=== PATIENT | male | born 1930 | race Caucasian/White ===

== ENCOUNTER 2017-02-15 18:14 | Emergency (ER) | payer OTHER, MEDICARE, BC ==
[2017-02-15] MEDS ORDERED: Sodium Chloride 0.9% 2.5 ML Syringe FLUSH PRN (18:47)
[2017-02-15] MEDS ORDERED: Sodium Chloride 0.9% 10 ML Syringe FLUSH PRN (18:47)
--- NOTE | 2017-02-15 18:48 | EDM.PDOC ---
ED HPI GENERAL MEDICAL PROBLEM - General Stated Complaint: POSSIBLE INFECTION/RT LOWER LEG Time Seen by Provider: 02/15/17 18:30 Source of Information: Reports: Patient, Family History Limitations: Reports: No Limitations - History of Present Illness INITIAL COMMENTS - FREE TEXT/NARRATIVE: HISTORY AND PHYSICAL: History of present illness: [Patient is brought to ER by his daughter for complaints of R lower leg pain and redness. States that he got his leg stuck between a tractor and another implement. Exact mechanism unclear. He has some scratches to his lower right leg , which he hasn't treated with any ointments. Pain has gradually increased, and he describes it as a feeling of tightness to his R lower leg, but is only painful with weightbearing. Has had some yellow drainage from the open wound on his right lower leg. Denies fever and chills. No chest pain shortness of breath or difficulty breathing. Appetite has been good. No abdominal pain, nausea or vomiting. Bowels and bladder are normal. Denies calf pain. Family is in town for the of his youngest daughter who of brain cancer. Has a history of COPD and type 2 diabetes requiring insulin. Follows with Dr. Farmer. ] Review of systems: As per history of present illness and below otherwise all systems reviewed and negative. Past medical history: As per history of present illness and as reviewed below otherwise noncontributory. Surgical history: As per history of present illness and as reviewed below otherwise noncontributory. Social history: No reported history of drug or alcohol abuse. Family history: As per history of present illness and as reviewed below otherwise noncontributory. Physical exam: HEENT: Atraumatic, normocephalic. Oral mucous membranes pink and moist. Lungs: Clear to auscultation, breath sounds equal bilaterally. Heart: S1S2, regular. Abdomen: Obese. Soft, nondistended, nontender. Negative for masses, guarding or rebound. Pelvis: Stable nontender. Genitourinary: Deferred. Rectal: Deferred. Extremities: Skin to bilateral lower extremities is heme stained. R lower extremity is ralf and dark red in color. Several small scabs to RLE. 1" long abrasion to proximal mid RLE. Small amount of yellow drainage present at wound. Pulses are equal bilat, 1+. Mild pitting edema present bilat. No deformities appreciated. He is nontender w/ palpation of bilat calves. No cords palpated. Neurovascular unremarkable. Neuro: Awake, alert, oriented. Motor and sensory unremarkable throughout. Exam nonfocal. Diagnostics: [CBC, CMP, lactic acid, tib/fib fracture] Therapeutics: [Rocephin 1 gram IV] Impression: [cellulitis RLE] Plan: [Cephalexin 500 mg #40 sig 2 tabs twice a day zero refills. Elevate leg as much as possible followup with Dr. Farmer in 48-72 hours. Bacitracin and dressing changes twice daily. Strict return impressions are discussed with the patient and his daughter.] Definitive disposition and diagnosis as appropriate pending reevaluation and review of above. - Related Data Allergies Allergy/AdvReac Type Severity Reaction Status Date / Time aspirin Allergy Hives Verified 02/15/17 18:43 fentanyl Allergy Hives Verified 02/15/17 18:43 meperidine [From Demerol] Allergy Hives Verified 02/15/17 18:43 morphine Allergy Hives Verified 02/15/17 18:43 Penicillins Allergy Hives Verified 02/15/17 18:43 Home Meds: Home Meds Albuterol Sulfate [Ventolin Hfa] 02/15/17 [History] Budesonide/Formoterol [Symbicort 80-4.5 MCG] 02/15/17 [History] Furosemide [Lasix] 40 mg DAILY 02/15/17 [History] Insulin Glarg,Human.Rec.Analog [Lantus] 40 units BEDTIME 02/15/17 [History] Insulin Lispro [Humalog Kwikpen U-100] 02/15/17 [History] Losartan [Cozaar] 02/15/17 [History] Other Blood Pressure Med? 02/15/17 [History] Pioglitazone HCl [Actos] 02/15/17 [History] Pioglitazone [Actos] 02/15/17 [History] Venlafaxine [Effexor XR] 02/15/17 [History] traMADol [Ultram] 02/15/17 [History] Review of Systems - Review of Systems Review Of Systems: ROS reveals no pertinent complaints other than HPI. Trauma Exam - Physical Exam Exam: See Below Course - Vital Signs Last Recorded V/S: Last Vital Signs Temp 98.0 F 02/15/17 18:20 Pulse 82 02/15/17 18:20 Resp 18 02/15/17 18:20 BP 147/61 H 02/15/17 18:20 Pulse Ox 94 L 02/15/17 18:20 - Orders/Labs/Meds Orders: Active Orders 24 hr Category Date Time Status Tibia Fibula Rt [CR] Stat Exams 02/15/17 18:47 Taken Sodium Chloride 0.9% [Saline Flush] Med 02/15/17 18:47 Active 10 ml FLUSH ASDIRECTED PRN Sodium Chloride 0.9% [Saline Flush] Med 02/15/17 18:47 Active 2.5 ml FLUSH ASDIRECTED PRN Saline Lock Insert [OM.PC] Stat Oth 02/15/17 18:47 Ordered Medication Orders Sodium Chloride (Saline Flush) 10 ml FLUSH ASDIRECTED PRN PRN Reason: Keep Vein Open Sodium Chloride (Saline Flush) 2.5 ml FLUSH ASDIRECTED PRN PRN Reason: Keep Vein Open Labs: Laboratory Tests 02/15/17 02/15/17 02/15/17 Range/Units 19:07 19:07 19:07 WBC 9.06 (4.0-11.0) K/uL RBC 4.51 (4.50-5.90) M/uL Hgb 13.0 (13.0-17.0) g/dL Hct 40.8 (38.0-50.0) % MCV 90.5 (80.0-98.0) fL MCH 28.8 (27.0-32.0) pg MCHC 31.9 (31.0-37.0) g/dL RDW Std Deviation 48.7 (28.0-62.0) fl RDW Coeff of Tahir 15 (11.0-15.0) % Plt Count 153 (150-400) K/uL MPV 11.60 (7.40-12.00) fL Neut % (Auto) 71.1 (48.0-80.0) % Lymph % (Auto) 15.5 L (16.0-40.0) % [place] % (Auto) 7.5 (0.0-15.0) % Eos % (Auto) 5.6 (0.0-7.0) % Baso % (Auto) 0.3 (0.0-1.5) % Neut # (Auto) 6.4 H (1.4-5.7) K/uL Lymph # (Auto) 1.4 (0.6-2.4) K/uL [place] # (Auto) 0.7 (0.0-0.8) K/uL Eos # (Auto) 0.5 (0.0-0.7) K/uL Baso # (Auto) 0.0 (0.0-0.1) K/uL Nucleated RBC % 0.0 /100WBC Nucleated RBCs # 0 K/uL Lactate 1.1 (0.20-2.00) mmol/L Sodium 140 (136-146) mmol/L Potassium 4.3 (3.5-5.1) mmol/L Chloride 108 (98-110) mmol/L Carbon Dioxide 23 (21-31) mmol/L BUN 50 H (6.0-23.0) mg/dL Creatinine 2.3 H (0.6-1.5) mg/dL Est Cr Clr Drug Dosing TNP Estimated GFR (MDRD) 27.0 ml/min Glucose 234 H (60-110) mg/dL Calcium 9.2 (8.8-10.8) mg/dL Total Bilirubin 0.4 (0.1-1.5) mg/dL AST 14 (5-40) IU/L ALT 14 (8-54) IU/L Alkaline Phosphatase 62 (40-150) Total Protein 7.0 (6.0-8.0) g/dL Albumin 4.0 (3.4-4.8) g/dL Globulin 3.0 (2.0-3.5) g/dL Albumin/Globulin Ratio 1.3 (1.3-2.8) Meds: Medications Generic Name Dose Route Start Last Admin Trade Name Freq PRN Reason Stop Dose Admin Sodium Chloride 10 ml 02/15/17 18:47 Saline Flush FLUSH ASDIRECTED PRN Keep Vein Open Sodium Chloride 2.5 ml 02/15/17 18:47 Saline Flush FLUSH ASDIRECTED PRN Keep Vein Open Discontinued Medications Generic Name Dose Route Start Last Admin Trade Name Freq PRN Reason Stop Dose Admin Bacitracin Confirm 02/15/17 20:45 Bacitracin Oint 1 Gm Administered 02/15/17 20:46 Dose 1 dose .ROUTE .STK-MED ONE Ceftriaxone Sodium/Dextrose 1 50 mls @ 100 mls/hr 02/15/17 19:31 02/15/17 19: 55 gm/ Premix IV 02/15/17 20:00 100 mls/hr ONETIME ONE Administration Departure - Departure Time of Disposition: 20:30 Disposition: Home, Self-Care 01 Condition: good Clinical Impression: Cellulitis Qualifiers: Site of cellulitis: extremity Site of cellulitis of extremity: lower extremity Laterality: right Qualified Code(s): L03.115 - Cellulitis of right lower limb - Discharge Information Instructions: Cellulitis, Adult, Erki-wz-Erol Referrals: Haim Farmer MD [Primary Care Provider] - Forms: ED Department Discharge Additional Instructions: The following information is given to patients seen in the emergency department who are being discharged to home. This information is to outline your options for follow-up care. We provide all patients seen in our emergency department with a follow-up referral. The need for follow-up, as well as the timing and circumstances, are variable depending upon the specifics of your emergency department visit. If you don't have a primary care physician on staff, we will provide you with a referral. We always advise you to contact your personal physician following an emergency department visit to inform them of the circumstance of the visit and for follow-up with them and/or the need for any referrals to a consulting specialist. The emergency department will also refer you to a specialist when appropriate. This referral assures that you have the opportunity for follow-up care with a specialist. All of these measure are taken in an effort to provide you with optimal care, which includes your follow-up. Under all circumstances we always encourage you to contact your private physician who remains a resource for coordinating your care. When calling for follow-up care, please make the office aware that this follow-up is from your recent emergency room visit. If for any reason you are refused follow-up, please contact the [facility] emergency department at and asked to speak to the emergency department charge nurse. [address] Rhule in 48-72 hours. Take antibiotics as prescribed. Keep wound clean and dry. Apply Bacitracin (available OTC) and a fresh bandage twice daily. Elevate foot as much as possible. Return to ER as needed as discussed. - My Orders Last 24 Hours: My Active Orders 02/15/17 18:47 Tibia Fibula Rt [CR] Stat Sodium Chloride 0.9% [Saline Flush] 10 ml FLUSH ASDIRECTED PRN Sodium Chloride 0.9% [Saline Flush] 2.5 ml FLUSH ASDIRECTED PRN Saline Lock Insert [OM.PC] Stat - Assessment/Plan Last 24 Hours: My Active Orders 02/15/17 18:47 Tibia Fibula Rt [CR] Stat Sodium Chloride 0.9% [Saline Flush] 10 ml FLUSH ASDIRECTED PRN Sodium Chloride 0.9% [Saline Flush] 2.5 ml FLUSH ASDIRECTED PRN Saline Lock Insert [OM.PC] Stat
[2017-02-15] MEDS ORDERED: cefTRIAXone 1 GM in Premix Bag 1 BAG IV ONE (19:31)
[2017-02-15 19:36] LABS: CHLORIDE,CL 108 mmol/L (98-110); SODIUM,NA 140 mmol/L (136-146)
[2017-02-15] MEDS ORDERED: Bacitracin Oint 1 GM U/D Packet ONE (20:45)
[2017-02-15 20:59] VITALS: BP 133/67
--- NOTE | 2017-02-16 10:32 | CR ---
EXAM DATE: 02/15/17 PATIENT'S AGE: 87 Patient: DESMOND TEJEDA Facility: [place], [place] Site . Site : 1930 Study: XRay Extremity tib/fib [id number]/18/2017 7:38:27 PM Ordering Physician: Doctor Hanna Final Report: Indication: Pain Technique: Frontal and lateral views of the right lower tibia and fibula. Comparison: None Findings: Bones: Alignment is normal. No fractures or bone lesions. Surgical hardware seen within the medial femoral condyle and the medial tibial plateau. Joint spaces: Moderate degenerative changes in the lateral and patellofemoral compartments. Soft tissues: Unremarkable. Impression: No acute abnormality. Dictated by Imani Goins MD @ Feb 15 2017 7:57PM (Electronic Signature) Report Signed by Proxy. LUIS
== END 2017-02-15 20:45 | disposition home or self-care (01) ==
LOC: MW.ED 18:14
DX: L03.115 Cellulitis of right lower limb (principal); E11.9 Type 2 diabetes mellitus without complications; Z79.4 Long term (current) use of insulin; Z88.0 Allergy status to penicillin; Z88.5 Allergy status to narcotic agent; Z88.6 Allergy status to analgesic agent; Z79.899 Other long term (current) drug therapy
CPT/HCPCS: 36415; 73590; 80053; 83605; 85025; 96365; 99284; J0696

== ENCOUNTER 2017-07-04 13:25 | Emergency (ER) | payer OTHER, MEDICARE, BC ==
[2017-07-04] MEDS ORDERED: EPINEPHrine 1:10,000 1 MG/10 ML Syringe IVPUSH ONE ×2 (13:28→13:29)
[2017-07-04] MEDS ORDERED: Sodium Chloride 0.9% 1,000 ML IV SCH (13:28)
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
== END 2017-07-04 16:15 | disposition expired ==
LOC: MW.ED 13:25
DX: I46.9 Cardiac arrest, cause unspecified (principal); S82.891B Other fracture of right lower leg, initial encounter for open fracture type I or II; S01.01XA Laceration without foreign body of scalp, initial encounter; I50.9 Heart failure, unspecified; J44.9 Chronic obstructive pulmonary disease, unspecified; F32.9 Major depressive disorder, single episode, unspecified; E11.9 Type 2 diabetes mellitus without complications; Z90.49 Acquired absence of other specified parts of digestive tract; Z96.651 Presence of right artificial knee joint; Z98.890 Other specified postprocedural states; Z90.79 Acquired absence of other genital organ(s); Z79.4 Long term (current) use of insulin; Z79.899 Other long term (current) drug therapy; Z88.0 Allergy status to penicillin; Z88.5 Allergy status to narcotic agent; Z88.6 Allergy status to analgesic agent; Z88.8 Allergy status to other drugs, medicaments and biological substances; V53.5XXA Driver of pick-up truck or van injured in collision with car, pick-up truck or van in traffic accident, initial encounter; Y92.410 Unspecified street and highway as the place of occurrence of the external cause
CPT/HCPCS: 31500; 92950; 99285; G0390; J0171; J7040